=== PATIENT | female | born 1960 | race Caucasian/White ===

== ENCOUNTER 2016-12-13 12:23 | Emergency (ER) | payer BC ==
[2016-12-13 12:36] VITALS: BP 185/92
--- NOTE | 2016-12-13 13:14 | RAD ---
Shoulder x-rays Indication: Pain without injury. Technique: 3 views of the right shoulder Comparison: None Findings: No acute fracture or dislocation. Linear calcific density seen overlying the greater tuberosity. Mild acromioclavicular joint osteoarthritis. Glenohumeral joint within normal limits. Visualized right lung is clear. Impression: 1. Calcific density in the region of greater tuberosity may represent calcific tendinosis or tendon anchor if patient has history of rotator cuff repair. 2. Mild AC joint osteoarthritis. No acute fractures or dislocation.
--- NOTE | 2016-12-13 13:35 | PHYS DOC ---
Past History Past Medical History: A-Fib Past Surgical History: Appendectomy, Cholecystectomy, Other Adult General Chief Complaint Chief Complaint: SHOULDER INJURY HPI HPI 56-year-old female with a past medical history of chronic right shoulder pain which she has previously been told was associated with her rotator cuff, now presents to the emergency department complaining of the same pain which is generally been getting worse in her right shoulder when she uses it. Patient sometimes has no symptoms but with certain movements like reaching upwards to get something out of a cabinet she might have a sharp pain right in the shoulder area. She has not had any recent trauma and she's never had a surgery or procedure on that shoulder. She states is frustrated with the symptoms as they've been long-term at this point and sometimes quite uncomfortable. There is no swelling or bruising no deformity and she does have normal use and range of motion of the arm but sometimes with the aforementioned pains in the shoulder itself. Weakness or changes in sensation coordination or use Review of Systems Review of Systems Constitutional: Denies fever or chills [] Eyes: Denies change in visual acuity, redness, or eye pain [] HENT: Denies nasal congestion or sore throat [] Respiratory: Denies cough or shortness of breath [] Cardiovascular: No additional information not addressed in HPI [] GI: Denies abdominal pain, nausea, vomiting, bloody stools or diarrhea [] : Denies dysuria or hematuria [] Musculoskeletal: Denies back pain or joint pain [] Integument: Denies rash or skin lesions [] Neurologic: Denies headache, focal weakness or sensory changes [] Endocrine: Denies polyuria or polydipsia [] Allergies Allergies Allergies Coded Allergies Type Severity Reaction Last Updated Verified No Known Drug Allergies 12/13/16 No Physical Exam Physical Exam Well-appearing 56-year-old female no acute distress perfectly groomed mild soft tissue tenderness in the proximal biceps tendon distribution as well as the lateral humeral head distribution. No skin changes swelling or bony tenderness. No deformity. Normal range of motion of the arm and shoulder without difficulty NVI distal Constitutional: Well developed, well nourished, no acute distress, non-toxic appearance. [] HENT: Normocephalic, atraumatic, bilateral external ears normal, oropharynx moist, no oral exudates, nose normal. [] Eyes: PERRLA, EOMI, conjunctiva normal, no discharge. [] Neck: Normal range of motion, no tenderness, supple, no stridor. [] Cardiovascular:Heart rate regular rhythm, no murmur [] Lungs & Thorax: Bilateral breath sounds clear to auscultation [] Abdomen: Bowel sounds normal, soft, no tenderness, no masses, no pulsatile masses. [] Skin: Warm, dry, no erythema, no rash. [] Back: No tenderness, no CVA tenderness. [] Extremities: No tenderness, no cyanosis, no clubbing, ROM intact, no edema. [] Neurologic: Alert and oriented X 3, normal motor function, normal sensory function, no focal deficits noted. [] Psychologic: Affect normal, judgement normal, mood normal. [] Current Patient Data Vital Signs Vital Signs Date Time Temp Pulse Resp B/P (MAP) Pulse Ox O2 Delivery O2 Flow Rate FiO2 12/13/16 12:36 98.0 93 16 97 Room Air EKG EKG [] Radiology/Procedures Radiology/Procedures [] Course & Med Decision Making Course & Med Decision Making Pertinent Labs and Imaging studies reviewed. (See chart for details) Signs and symptoms consistent with tendinitis in the shoulder. X-ray with radiographic evidence of calcific tendinitis on the lateral aspect. Patient aware to use a sling as needed for symptomatic relief however to remove it frequently for full range of motion of the shoulder so as not to lose mobility. She can take NSAID such as ibuprofen apply ice if needed when the pain gets more sore towards the end of the day, and follow-up with her doctor for reevaluation and referral to orthopedics as needed. [] Dragon Disclaimer Dragon Disclaimer This chart was dictated in whole or in part using Voice Recognition software in a busy, high-work load, and often noisy Emergency Department environment. It may contain unintended and wholly unrecognized errors or omissions. Departure Departure: Impression: Primary Impression: Calcific tendinitis of right shoulder Additional Impression: Shoulder pain Disposition: 01 HOME, SELF-CARE Condition: STABLE Referrals: AAV DUEÑAS (PCP) Patient Instructions: Biceps Tendon Tendinitis (Proximal) and Tenosynovitis with Re[facility] Additional Instructions: It appears that you have calcific tendinitis of your right shoulder as well as biceps tendinitis. Calcific tendinitis is when a tendon becomes chronically inflamed and as a result the soft tissues become calcified or hardened with calcium. This can be set up for chronic pain because the tendon no longer has the typical flexibility and resilience that it normally would so it can create discomfort for the patient with certain ranges of motion of the involved joint. This is the case with your right shoulder. U also have tenderness of your proximal biceps tendon which would indicate biceps tendinitis. All of these are inflammatory processes and would benefit from taking anti-inflammatory medication such as ibuprofen 800 mg every 6 hours. He finally her shoulders especially sore at any time he can also take Tylenol as well as use an ice pack on it. Follow-up with your doctor for referral to orthopedics to discuss your results possible treatment protocols and long-term prognosis. Return immediately for new severe worsening symptoms Problem Qualifiers ZENA SALVADOR MD Dec 13, 2016 13:35
== END 2016-12-13 13:39 | disposition home or self-care (01) ==
LOC: ER 12:23
DX: M75.31 Calcific tendinitis of right shoulder (principal); G89.29 Other chronic pain; I48.91 Unspecified atrial fibrillation
CPT/HCPCS: 73030; 99284

== ENCOUNTER 2017-01-01 12:43 | Emergency (ER) | payer BC ==
[~2017-01-01] VITALS: Ht 154.9 cm; Wt 99.8 kg
[2017-01-01 12:51] VITALS: BP 167/85
[2017-01-01] MEDS ORDERED: ACETAMINOPHEN 500 MG TABLET PO ONE (13:45)
[2017-01-01] MEDS ORDERED: ONDANSETRON ODT 4 MG TAB.RAPDIS PO ONE (13:45)
[2017-01-01 13:50] LABS: INFLUENZA A PATIENT NEGATIVE (NEGATIVE); INFLUENZA B PATIENT NEGATIVE (NEGATIVE)
[2017-01-01] MEDS ORDERED: ONDA4TAB10 SL (14:11)
--- NOTE | 2017-01-01 14:11 | PHYS DOC ---
Past History Past Medical History: A-Fib, Constipation Past Surgical History: Other Alcohol Use: None Drug Use: None Adult General Chief Complaint Chief Complaint: NAUSEA/VOMITING/DIARRHEA HPI HPI Patient is a 56 year old F who presents with fever and nausea. She denies vomiting and diarrhea. She states that she has had generalized body aches and chills. She has mild neck pain but does not feel that she has reduced range of motion with respect to her neck. She has been able to hold down fluids and does not describe belly pain. She has had normal bowel movements and urination is normal as well. Review of Systems Review of Systems Constitutional: Negative except history of present illness Eyes: Denies change in visual acuity, redness, or eye pain [] HENT: Denies nasal congestion or sore throat [] Respiratory: Denies cough or shortness of breath [] Cardiovascular: No additional information not addressed in HPI [] GI: Denies abdominal pain, vomiting, bloody stools or diarrhea [] : Denies dysuria or hematuria [] Musculoskeletal: Denies back pain or joint pain [] Integument: Denies rash or skin lesions [] Neurologic: Denies headache, focal weakness or sensory changes [] Endocrine: Denies polyuria or polydipsia [] Family History Family History Uncontributory Current Medications Current Medications Current Medications Medications (Trade) Dose Ordered Sig/[facility] Start Time Stop Time Status Last Admin Dose Admin Acetaminophen (Tylenol) 1,000 mg 1X ONCE 01/01/17 13:45 01/01/17 13:46 DC 01/01/17 13:35 1,000 MG Ondansetron HCl (Zofran Odt) 4 mg 1X ONCE 01/01/17 13:45 01/01/17 13:46 DC 01/01/17 13:37 4 MG Allergies Allergies Allergies Coded Allergies Type Severity Reaction Last Updated Verified No Known Drug Allergies 12/13/16 No Physical Exam Physical Exam Constitutional: Well developed, well nourished, no acute distress, non-toxic appearance. [] HENT: Normocephalic, atraumatic, bilateral external ears normal, oropharynx moist, no oral exudates, nose normal. [] Eyes: PERRLA, EOMI, conjunctiva normal, no discharge. [] Neck: Normal range of motion, no tenderness, supple, no stridor. [] Cardiovascular:Heart rate regular rhythm, no murmur [] Lungs & Thorax: Bilateral breath sounds clear to auscultation [] Abdomen: Bowel sounds normal, soft, no tenderness, no masses, no pulsatile masses. [] Skin: Warm, dry, no erythema, no rash. [] Back: No tenderness, no CVA tenderness. [] Extremities: No tenderness, no cyanosis, no clubbing, ROM intact, no edema. [] Neurologic: Alert and oriented X 3, normal motor function, normal sensory function, no focal deficits noted. [] Psychologic: Affect normal, judgement normal, mood normal. [] Current Patient Data Vital Signs Vital Signs Date Time Temp Pulse Resp B/P (MAP) Pulse Ox O2 Delivery O2 Flow Rate FiO2 01/01/17 12:51 100.2 105 16 95 Room Air Lab Results Laboratory Tests Test 01/01/17 13:05 Influenza Type A (Rapid) Negative (NEGATIVE) Influenza Type B (Rapid) Negative (NEGATIVE) EKG EKG [] Radiology/Procedures Radiology/Procedures [] Course & Med Decision Making Course & Med Decision Making Pertinent Labs and Imaging studies reviewed. (See chart for details) Further labs and imaging were declined this time. He was strongly advised to return to the ER if she develops new or worsening symptoms for further evaluation Dragon Disclaimer Dragon Disclaimer This chart was dictated in whole or in part using Voice Recognition software in a busy, high-work load, and often noisy Emergency Department environment. It may contain unintended and wholly unrecognized errors or omissions. Departure Departure: Impression: Primary Impression: Viral gastritis Disposition: 01 HOME, SELF-CARE Condition: STABLE Referrals: PCP,NO (PCP) Patient Instructions: Viral Gastroenteritis Additional Instructions: Guillermina was seen in the emergency room for nausea with fevers/sweats/chills. No emergency medical condition was found on history or physical exam. She did have a negative influenza screen. Her symptoms are most consistent with a viral gastroenteritis. She was given a prescription for nausea medication and advised continue drinking plenty of fluids. She is advised to return to the emergency room if she develops new or worsening symptoms. She is also advised follow-up with her primary care doctor in the next 1-2 weeks for further management. Scripts Ondansetron (ZOFRAN ODT) 4 Mg Tab.rapdis 15 TAB SL Q8HRS, #15 TAB Prov: EAGLE WHITT MD 01/01/17 EAGLE WHITT MD Jan 01, 2017 14:11
== END 2017-01-01 14:15 | disposition home or self-care (01) ==
LOC: ER 12:43
DX: A08.4 Viral intestinal infection, unspecified (principal); I48.91 Unspecified atrial fibrillation
CPT/HCPCS: 87804; 99284; Q0162

== ENCOUNTER → 2017-02-26 | Outpatient (CLI) | payer OTHER ==
[~2017-02-26] MED LIST: IOHEXOL 300 MG/ML 75 ML VIAL. IV ONE; ONDA4TAB10 SL
[2017-02-26 13:00] LABS: BASO # 0.1 x10^3/uL (0.0-0.2); BASO % 1 % (0-3); EOS # 0.1 x10^3/uL (0.0-0.7); EOS % 2 % (0-3); HEMATOCRIT 41.7 % (36.0-47.0); HEMOGLOBIN 14.6 g/dL (12.0-15.5); LYMPH # 2.8 x10^3/uL (1.0-4.8); LYMPH % 32 % (24-48); MEAN CORPUSCULAR HEMOGLOBIN 30 pg (25-35); MEAN CORPUSCULAR HGB CONC 35 g/dL (31-37); MEAN CORPUSCULAR VOLUME 85 fL (79-100); MONO # 0.5 x10^3/uL (0.0-1.1); MONO % 6 % (0-9); NEUT # 5.1 x10^3uL (1.8-7.7); NEUT % 60 % (31-73); PLATELET COUNT 242 x10^3/uL (140-400); RED BLOOD COUNT 4.92 x10^6/uL (3.50-5.40); RED CELL DISTRIBUTION WIDTH 13.5 % (11.5-14.5); WHITE BLOOD COUNT 8.6 x10^3/uL (4.0-11.0)
[2017-02-26 13:05] LABS: ALBUMIN 3.6 g/dL (3.4-5.0); CALCIUM 9.5 mg/dL (8.5-10.1); CREATININE 1.1 mg/dL (0.6-1.0); GFR 50.8; MAGNESIUM 1.9 mg/dL (1.8-2.4); POTASSIUM 4.5 mmol/L (3.5-5.1); TOTAL BILIRUBIN 0.3 mg/dL (0.2-1.0); TOTAL PROTEIN 7.2 g/dL (6.4-8.2)
[2017-02-26 13:16] LABS: BILIRUBIN,URINE NEG (NEG); CLARITY,URINE CLOUDY; COLOR,URINE YELLOW; GLUCOSE,URINE >=1000 mg/dL (NEG); UROBILINOGEN,URINE 0.2 mg/dL (0.2 mg/dL)
[2017-02-26 13:17] LABS: BACTERIA,URINE MOD /HPF (0-FEW); NITRITE,URINE POS (NEG); SQUAMOUS EPITHELIAL CELL,UR MOD /LPF; WBC,URINE 20-40 /HPF (0-4)
--- NOTE | 2017-02-26 15:02 | RAD ---
EXAM: CT abdomen/pelvis with contrast. HISTORY: Abdominal pain, fever, vomiting and diarrhea. TECHNIQUE: Computed tomography of the abdomen and pelvis was performed after the intravenous administration of 60 mL Omnipaque 300. COMPARISON: None. FINDINGS: Lung windows through the visualized portions of the bases reveal mild atelectasis. There are atherosclerotic calcifications of the coronary arteries. Bone windows reveal no suspicious lesions. The gallbladder is surgically absent. A few pancreatic parenchymal calcifications suggest chronic pancreatitis. There is no clear ductal dilatation or focal lesion. Cortical scars are noted along the right kidney. The left is unremarkable. The liver, spleen and adrenal glands are unremarkable. There are no pathologically enlarged lymph nodes. The appendix is surgically absent. Small umbilical and bilateral umbilical hernias contain only fat. Sigmoid diverticulosis is mild. There are changes of pelvic floor relaxation. There is no obstruction. IMPRESSION: 1. Few pancreatic parenchymal calcifications. Correlate for chronic pancreatitis. No other cause for acute pain is identified. 2. Small focal and bilateral inguinal hernias containing only fat. 3. Pelvic floor relaxation. *One or more of the following individualized dose reduction techniques were utilized for this examination: 1. Automated exposure control. 2. Adjustment of the mA and/or kV according to patient size. 3. Use of iterative reconstruction technique.
== END | disposition home or self-care (01) ==
LOC: LAB 12:12
PROVIDERS: ATTEND Family Medicine
DX: K40.20 Bilateral inguinal hernia, without obstruction or gangrene, not specified as recurrent (principal); K57.30 Diverticulosis of large intestine without perforation or abscess without bleeding; I25.10 Atherosclerotic heart disease of native coronary artery without angina pectoris; J98.11 Atelectasis; K86.89 Other specified diseases of pancreas; N28.89 Other specified disorders of kidney and ureter; Z90.49 Acquired absence of other specified parts of digestive tract; Z90.89 Acquired absence of other organs
CPT/HCPCS: 36415; 74177; 80053; 81001; 83735; 84443; 85025; 87086; Q9967

== ENCOUNTER → 2017-04-09 | Outpatient (CLI) | payer OTHER ==
[~2017-04-09] MED LIST changes: -IOHEXOL 300 MG/ML 75 ML VIAL. IV ONE
--- NOTE | 2017-04-09 12:19 | RAD ---
Gastric imaging study 04/09/2017 Indication: Vomiting, diarrhea, nausea Comparison study: None Discussion: Imaging over the abdomen was performed for one hour following the oral administration of 2.1 mCi of technetium 99m labeled sulfur colloid solid meal. Cine images demonstrate some emptying of the stomach into the small bowel. No overt reflux is identified. Gastric emptying half time is estimated at 216 minutes (normal is 30 to 90 minutes). Impression: Delayed gastric emptying
== END | disposition home or self-care (01) ==
LOC: NM 07:17
PROVIDERS: ATTEND Family Medicine
DX: K30 Functional dyspepsia (principal); E11.40 Type 2 diabetes mellitus with diabetic neuropathy, unspecified; Z90.49 Acquired absence of other specified parts of digestive tract
CPT/HCPCS: 78264; A9541

== ENCOUNTER 2017-08-15 22:58 | Emergency (ER) | payer OTHER ==
[~2017-08-15] VITALS: Ht 170.2 cm; Wt 95.3 kg
[2017-08-15] MEDS ORDERED: HYDROmorphone PF 1 MG/ML DISP.SYRIN IV PRN (23:30)
[2017-08-15] MEDS ORDERED: IV NORMAL SALINE 1,000ML 1,000 ML IV ONE (23:45)
[2017-08-15] MEDS ORDERED: ONDANSETRON PF 4 MG/2 ML VIAL. IV ONE (23:45)
[2017-08-16 00:19] LABS: BASO % 1 % (0-3); EOS # 0.2 x10^3/uL (0.0-0.7); EOS % 2 % (0-3); HEMATOCRIT 44.3 % (36.0-47.0); HEMOGLOBIN 15.3 g/dL (12.0-15.5); LYMPH # 2.6 x10^3/uL (1.0-4.8); LYMPH % 29 % (24-48); MEAN CORPUSCULAR HEMOGLOBIN 30 pg (25-35); MEAN CORPUSCULAR HGB CONC 35 g/dL (31-37); MEAN CORPUSCULAR VOLUME 85 fL (79-100); MONO # 0.5 x10^3/uL (0.0-1.1); MONO % 6 % (0-9); NEUT # 5.6 x10^3uL (1.8-7.7); NEUT % 63 % (31-73); PLATELET COUNT 246 x10^3/uL (140-400); RED BLOOD COUNT 5.18 x10^6/uL (3.50-5.40); RED CELL DISTRIBUTION WIDTH 13.7 % (11.5-14.5)
[2017-08-16 00:32] LABS: ALBUMIN 3.7 g/dL (3.4-5.0); CALCIUM 9.5 mg/dL (8.5-10.1); CREATININE 1.1 mg/dL (0.6-1.0); TOTAL PROTEIN 7.1 g/dL (6.4-8.2)
[2017-08-16 00:33] LABS: DIRECT BILIRUBIN 0.1 mg/dL (0.0-0.2); GFR 50.8; POTASSIUM 4.2 mmol/L (3.5-5.1); TOTAL BILIRUBIN 0.3 mg/dL (0.2-1.0)
--- NOTE | 2017-08-16 00:38 | PHYS DOC ---
Past History Past Medical History: A-Fib, CAD, Diabetes, Heart Disease, Hypertension, Hypothyroid, Pancreatitis Past Surgical History: Appendectomy, Cholecystectomy, Other Alcohol Use: None Drug Use: None Adult General Chief Complaint Chief Complaint: abdominal pain HPI HPI 57-year-old female with a history of atrial fibrillation diabetes and pancreatitis presenting to the emergency department today with right and left lower quadrant abdominal pain/suprapubic abdominal pain that is a sharp shooting pain is moderate to severe nonradiating. No specific timing present. She has a history of an appendectomy and cholecystectomy. It is associated with nonbilious nonbloody vomiting. Review of systems is negative for chest pain shortness of breath fevers or chills. All other review of systems is negative unless otherwise noted in history of present illness. ED course: 57-year-old female presenting with suprapubic/right and left lower quadrant abdominal pain. On arrival the patient is afebrile with mild high blood pressure. Pulse within normal limits. Saturating well on room air. On examination she is well-appearing. Abdomen is soft and nontender palpation without rebound tenderness or guarding. Nondistended. The remainder the exam is unremarkable. IV established. Nausea and pain medications ordered. Blood work shows normal CBC. Chemistry panel shows elevated BUN and mild hyperglycemia. Lactic acid within normal limits. Urinalysis shows glucosuria and a small amount of blood in the urine. CT angiogram of the abdomen pelvis shows decreased density in the left common iliac and femoral veins. Clinically, the patient has no unilateral leg swelling hemoptysis or leg pain. No clinical signs of DVT. We will allow the patient to follow up with their primary care physician to monitor for this. On reexamination the patient is feeling better. We will discharge her home. The patient has been examined and was not found to have an emergency medical condition. The patient was then discharged home in stable condition to follow up with their primary care physician over the next 2- 3 days. They were to return if their symptoms worsened or if they were concerned for any reason. [id number] discharge instructions and return precautions were given. Patient's questions were answered to their satisfaction. Patient is comfortable with plan. Review of Systems Review of Systems SEE ABOVE. Current Medications Current Medications Current Medications Medications (Trade) Dose Ordered Sig/[facility] Start Time Stop Time Status Last Admin Dose Admin Hydromorphone HCl (Dilaudid) 0.5 mg PRN Q30MIN PRN 08/15/17 23:30 Ondansetron HCl (Zofran) 4 mg 1X ONCE 08/15/17 23:45 08/15/17 23:46 DC Sodium Chloride 1,000 ml @ 1,000 mls/hr 1X ONCE 08/15/17 23:45 08/16/17 00:44 Allergies Allergies Allergies Coded Allergies Type Severity Reaction Last Updated Verified No Known Drug Allergies 12/13/16 No Physical Exam Physical Exam SEE ABOVE Constitutional: Well developed, well nourished, no acute distress, non-toxic appearance. [] HENT: Normocephalic, atraumatic, bilateral external ears normal, oropharynx moist, no oral exudates, nose normal. [] Eyes: PERRLA, EOMI, conjunctiva normal, no discharge. [] Neck: Normal range of motion, no tenderness, supple, no stridor. [] Cardiovascular:Heart rate regular rhythm, no murmur [] Lungs & Thorax: Bilateral breath sounds clear to auscultation [] Abdomen: Bowel sounds normal, soft, no tenderness, no masses, no pulsatile masses. [] Skin: Warm, dry, no erythema, no rash. [] Back: No tenderness, no CVA tenderness. [] Extremities: No tenderness, no cyanosis, no clubbing, ROM intact, no edema. [] Neurologic: Alert and oriented X 3, normal motor function, normal sensory function, no focal deficits noted. [] Psychologic: Affect normal, judgement normal, mood normal. [] Current Patient Data Vital Signs Vital Signs Date Time Temp Pulse Resp B/P (MAP) Pulse Ox O2 Delivery O2 Flow Rate FiO2 08/15/17 23:11 98.2 88 20 96 Room Air Lab Results Laboratory Tests Test 08/15/17 23:55 White Blood Count 9.0 x10^3/uL (4.0-11.0) Red Blood Count 5.18 x10^6/uL (3.50-5.40) Hemoglobin 15.3 g/dL (12.0-15.5) Hematocrit 44.3 % (36.0-47.0) Mean Corpuscular Volume 85 fL (79-100) Mean Corpuscular Hemoglobin 30 pg (25-35) Mean Corpuscular Hemoglobin Concent 35 g/dL (31-37) Red Cell Distribution Width 13.7 % (11.5-14.5) Platelet Count 246 x10^3/uL (140-400) Neutrophils (%) (Auto) 63 % (31-73) Lymphocytes (%) (Auto) 29 % (24-48) Monocytes (%) (Auto) 6 % (0-9) Eosinophils (%) (Auto) 2 % (0-3) Basophils (%) (Auto) 1 % (0-3) Neutrophils # (Auto) 5.6 x10^3uL (1.8-7.7) Lymphocytes # (Auto) 2.6 x10^3/uL (1.0-4.8) Monocytes # (Auto) 0.5 x10^3/uL (0.0-1.1) Eosinophils # (Auto) 0.2 x10^3/uL (0.0-0.7) Basophils # (Auto) 0.0 x10^3/uL (0.0-0.2) EKG EKG [] Radiology/Procedures Radiology/Procedures [] Course & Med Decision Making Course & Med Decision Making Pertinent Labs and Imaging studies reviewed. (See chart for details) [] Dragon Disclaimer Dragon Disclaimer This electronic medical record was generated, in whole or in part, using a voice recognition dictation system. Departure Departure: Impression: Primary Impression: Abdominal pain Disposition: 01 HOME, SELF-CARE Condition: STABLE Referrals: LELO DE JESUS MD (PCP) Patient Instructions: Abdominal Pain Additional Instructions: Thank you for allowing us to participate in your care today. Followup with your primary care physician in 3 days if your symptoms do not improve. Call your Primary Doctor tomorrow and inform them of your visit today. If you do not have a primary care provider you can ask for a list of our primary care providers. Return to the emergency department you have any new or concerning findings. This should be evaluated by the primary care physician and any necessary consulting services for continued management within a few days after discharge. Return to emergency room if you have any new or concerning symptoms including but not limited to fever, chills, nausea, vomiting, intractable pain, any new rashes, chest pain, shortness of air, uncontrolled bleeding, difficulty breathing, and/or vision loss. If at any time, you are having difficulty getting into your primary care doctor or a specialist, return to the emergency department. KORINA GRANT MD Aug 16, 2017 00:38
[2017-08-16] MEDS ORDERED: CONTRAST GIVEN MC PRN (01:15)
[2017-08-16] MEDS ORDERED: IOHEXOL 300 MG/ML 75 ML VIAL. IV ONE (01:30)
[2017-08-16] MEDS ORDERED: HYDROmorphone PF 2 MG/ML VIAL ONE (01:35)
[2017-08-16 01:56] LABS: BACTERIA,URINE 0 /HPF (0-FEW); BILIRUBIN,URINE NEG (NEG); CLARITY,URINE HAZY; COLOR,URINE STRAW; GLUCOSE,URINE >=1000 mg/dL (NEG); NITRITE,URINE NEG (NEG); SQUAMOUS EPITHELIAL CELL,UR OCC /LPF; UROBILINOGEN,URINE 0.2 mg/dL (0.2 mg/dL); WBC,URINE OCC /HPF (0-4)
[2017-08-16 01:57] LABS: YEAST,URINE PRESENT /HPF
--- NOTE | 2017-08-16 03:03 | RAD ---
CT angiogram abdomen and pelvis with contrast: Reason for examination: Abdominal pain with atrial fibrillation and cardiac history. History of appendectomy and cholecystectomy. Comparison is made to previous study dated 02/26/2017. Helical images were obtained through the abdomen and pelvis with intravenous administration of 75 cc Omnipaque 300 using angiographic protocol. 3-D MIPS reconstruction was performed in sagittal and coronal planes. Exposure: One or more of the following individualized dose reduction techniques were utilized for this examination: 1. Automated exposure control 2. Adjustment of the mA and/or kV according to patient size 3. Use of iterative reconstruction technique. The lung bases are clear. The heart size is normal with no pericardial effusion seen. There appears to be some fatty infiltration in the liver without a focal hepatic lesion. No abnormality seen at the spleen, pancreas or adrenal glands. The gallbladder surgically absent. The abdominal aorta show no evidence of aneurysm or dissection. No abnormality seen at the inferior vena cava. There continues to be decreased density in the left common femoral and iliac veins and thrombus cannot be excluded but this is unchanged. Recommend clinical correlation. The appendix is surgically absent. The intestinal tract shows no abnormally dilated loops of bowel or bowel obstruction. There are diverticula in the sigmoid colon but there is no evidence of diverticulitis. The kidney shows no renal masses, hydronephrosis, renal calculi or evidence of obstructive uropathy. A few calcifications consistent with phleboliths are seen in the pelvis. No abnormality seen at the bladder or uterus. No adnexal masses or free fluid is seen. IMPRESSION: Fatty liver. Decreased density within the left common iliac and common femoral veins. This could be due to flow phenomenon as a similar appearance was seen previously but venous thrombus cannot be excluded. Diverticuli in the sigmoid colon without evidence of diverticulitis. No other acute abnormality seen in the abdomen or pelvis. Electronically signed by: Gail Sweeney MD (08/16/2017 3:00 AM) [facility]
[2017-08-16 03:30] VITALS: BP 147/78
== END 2017-08-16 03:58 | disposition home or self-care (01) ==
LOC: ER 22:58
DX: R10.31 Right lower quadrant pain (principal); R10.32 Left lower quadrant pain; R11.0 Nausea; R31.9 Hematuria, unspecified; I48.91 Unspecified atrial fibrillation; E11.65 Type 2 diabetes mellitus with hyperglycemia; I25.10 Atherosclerotic heart disease of native coronary artery without angina pectoris; I11.9 Hypertensive heart disease without heart failure; E03.9 Hypothyroidism, unspecified; Z90.49 Acquired absence of other specified parts of digestive tract
CPT/HCPCS: 36415; 74174; 80048; 80076; 81001; 83605; 83690; 84484; 85025; 96361; 96374; 96375; 99285; J1170; J2405; Q9967; J7030

== ENCOUNTER → 2018-06-28 | Outpatient (CLI) | payer BC, OTHER ==
--- NOTE | 2018-06-28 13:07 | RAD ---
DATE: 06/28/2018 EXAM: MAMMO AMARJIT MARCO ANTONIO MURO HISTORY: Breast pain COMPARISON: None available This study was interpreted with the benefit of Computerized Aided Detection (CAD). Breast Density: FATTY The breast parenchyma is primarily fatty replaced. Breast parenchyma level density A. FINDINGS: The patient presents with a complaint of right breast pain and no palpable abnormality. 2-D and 3-D tomosynthesis imaging was performed in CC and MLO projections. There is an electronic device compatible with an implanted tugboat captain projected over the medial aspect of the left breast. Several tiny smooth nodular opacities are present in both breasts, best seen on the tomosynthesis images. Multiple smooth nodule such as this tend to be benign. No spiculated mass or architectural distortion is seen. There are only normal fatty type tissues evident in the right breast in the area of reported pain in the upper medial right breast. There are scattered benign type calcifications in both breasts. There is slight clustering of some of these microcalcifications in 2 locations in the left breast, although the findings are probably benign. IMPRESSION: Probably benign microcalcifications and small smooth bilateral breast nodules as described above. In the absence of prior mammograms to establish stability, mammographic surveillance consisting of bilateral mammography in 6 months and then at yearly intervals is suggested. BI-RADS CATEGORY: 3 PROBABLY BENIGN FINDING(S)-SHORT INTERVAL FOLLOW-UP SUGGESTED RECOMMENDED FOLLOW-UP: 6M 6 MONTH FOLLOW-UP PQRS compliance statement: Patient information was entered into a reminder system with a target due date for the next mammogram. Mammography is a sensitive method for finding small breast cancers, but it does not detect them all and is not a substitute for careful clinical examination. A negative mammogram does not negate a clinically suspicious finding and should not result in delay in biopsying a clinically suspicious abnormality. "Our facility is accredited by the [employer] Mammography Program."
== END | disposition home or self-care (01) ==
LOC: MAMMO 12:08
PROVIDERS: ATTEND Family Medicine
DX: N64.4 Mastodynia (principal)
CPT/HCPCS: 77066; G0279; 77062

== ENCOUNTER → 2018-12-25 | Outpatient (CLI) | payer BC ==
--- NOTE | 2018-12-25 13:53 | RAD ---
DATE: 12/25/2018 EXAM: MAMMO AMARJIT DIAG BILAT HISTORY: Probably benign microcalcifications in the bilateral breast masses COMPARISON: 06/28/2018 This study was interpreted with the benefit of Computerized Aided Detection (CAD). Breast Density: FATTY The breast parenchyma is primarily fatty replaced. Breast parenchyma level density A. FINDINGS: Bilateral 3-D tomosynthesis was performed in CC and MLO projections. 2-D CC and MLO views are provided. Right breast: There are no suspicious microcalcifications, masses or areas of architectural distortion. Left breast: There are no suspicious microcalcifications, masses or areas of architectural distortion. Stable benign-appearing microcalcifications. Bilateral mammograms compared to prior examinations and appears unchanged. IMPRESSION: 1. Negative right mammogram. 2. Benign calcifications in the left breast. BI-RADS CATEGORY: 2 BENIGN FINDING(S) RECOMMENDED FOLLOW-UP: 12M 12 MONTH FOLLOW-UP PQRS compliance statement: Patient information was entered into a reminder system with a target due date 12/26/2019 for the next mammogram. Mammography is a sensitive method for finding small breast cancers, but it does not detect them all and is not a substitute for careful clinical examination. A negative mammogram does not negate a clinically suspicious finding and should not result in delay in biopsying a clinically suspicious abnormality. "Our facility is accredited by the [employer] Mammography Program."
== END | disposition home or self-care (01) ==
LOC: MAMMO 12:16
PROVIDERS: ATTEND Family Medicine
DX: R92.1 Mammographic calcification found on diagnostic imaging of breast (principal)
CPT/HCPCS: 77066; G0279; 77062

== ENCOUNTER → 2019-04-04 | Outpatient (CLI) | payer BC ==
[~2019-04-04] MED LIST changes: +IOHEXOL 240 MG/ML 50ML VIAL. ONE; +IOHEXOL 240 MG/ML 50ML VIAL. PO ONE; +IOHEXOL 300 MG/ML 75 ML VIAL. IV ONE
--- NOTE | 2019-04-05 07:56 | RAD ---
CT abdomen pelvis with contrast. HISTORY: Right lower quadrant pain, R 10.31 CT scan of the abdomen and pelvis was done using oral and intravenous contrast, 16 mL Omnipaque 300 contrast was used for the study. Lung bases are clear. There is no effusion. There is degenerative disc disease at L5-S1 with mild bulging of the disc at L4-5. Liver is normal in appearance. The patient's had a cholecystectomy and appendectomy. Spleen and adrenal glands are normal. Pancreas is normal. There is scarring in the upper and lower right kidney. There is no renal mass or hydronephrosis or intrarenal calculus. There is no adenopathy. Bowel pattern is normal. Uterus and ovaries are normal. There is mild diverticulosis without diverticulitis. There is no bowel obstruction. IMPRESSION: 1. Scarring in the right kidney. 2. No bowel obstruction or acute finding in the abdomen 3. Uterus and ovaries are normal. 4. Previous appendectomy. Electronically signed by: Koko Islas MD (04/05/2019 7:53 AM) [facility]
== END | disposition home or self-care (01) ==
LOC: CT 09:35
PROVIDERS: ATTEND Family Medicine
DX: K57.90 Diverticulosis of intestine, part unspecified, without perforation or abscess without bleeding (principal); M51.37 Other intervertebral disc degeneration, lumbosacral region; Z90.49 Acquired absence of other specified parts of digestive tract
CPT/HCPCS: 74177; Q9966; Q9967

== ENCOUNTER → 2019-04-18 | Outpatient (CLI) | payer BC ==
[~2019-04-18] MED LIST changes: -IOHEXOL 240 MG/ML 50ML VIAL. ONE; -IOHEXOL 240 MG/ML 50ML VIAL. PO ONE; -IOHEXOL 300 MG/ML 75 ML VIAL. IV ONE
--- NOTE | 2019-04-18 13:55 | RAD ---
EXAM: Pelvic sonogram. HISTORY: Right lower quadrant pain. TECHNIQUE: Transabdominal and transvaginal sonographic imaging of the pelvis was performed. COMPARISON: CT dated 04/04/2019. FINDINGS: The uterus is normal in size. The endometrial stripe measures 5 mm thickness. The ovaries are obscured due to bowel loops. There is no pelvic free fluid. IMPRESSION: 1. Upper normal endometrial stripe thickness for the postmenopausal status of the patient. 2. Obscured ovaries due to bowel loops. Electronically signed by: Jeannette Cabral MD (04/18/2019 1:52 PM) [place] [id number]
== END | disposition home or self-care (01) ==
LOC: US 09:31
PROVIDERS: ATTEND Family Medicine
DX: R10.31 Right lower quadrant pain (principal); Z78.0 Asymptomatic menopausal state
CPT/HCPCS: 76830

== ENCOUNTER → 2019-05-30 | Outpatient (CLI) | payer BC ==
--- NOTE | 2019-05-30 14:48 | RAD ---
EXAM: Chest, 2 views. HISTORY: Wheezing. Cough. Fever. COMPARISON: None. FINDINGS: 2 views of the chest are obtained. There is diffuse central predominant interstitial infiltrate with suspected small left pleural effusion. There is a prominent cardiac silhouette. There is no pneumothorax. There is a cardiac event monitor overlying the left thorax. IMPRESSION: Diffuse central predominant interstitial infiltrate with suspected small left pleural effusion. Electronically signed by: Jeannette Cabral MD (05/30/2019 2:45 PM) [facility] [place]
== END | disposition home or self-care (01) ==
LOC: DXRAD 12:06
PROVIDERS: ATTEND Family Medicine
DX: R91.8 Other nonspecific abnormal finding of lung field (principal)
CPT/HCPCS: 71046

== ENCOUNTER → 2019-06-02 | Outpatient (CLI) | payer BC ==
--- NOTE | 2019-06-02 17:46 | RAD ---
CHEST PA LATERAL History: Cough Comparison: 05/30/2021 view chest x-ray exam. Findings: Frontal and lateral views of chest were obtained. There is a loop recorder device. The cardiomediastinal silhouette is normal. Pulmonary vasculature is mildly congested. Small pleural effusions are present. Minimal left basilar linear atelectasis is present. No pneumothorax. There is no acute bone abnormality. Upper abdominal surgical clips are present. IMPRESSION: Mild pulmonary vascular congestion and pleural effusions. Electronically signed by: Abraham Roberts MD (06/02/2019 5:43 PM) [id number]
== END | disposition home or self-care (01) ==
LOC: DXRAD 12:57
PROVIDERS: ATTEND Family Medicine
DX: I50.33 Acute on chronic diastolic (congestive) heart failure (principal); J90 Pleural effusion, not elsewhere classified; J98.11 Atelectasis
CPT/HCPCS: 71046

== ENCOUNTER → 2019-11-19 | Outpatient (CLI) | payer BC ==
--- NOTE | 2019-11-19 10:50 | RAD ---
PROCEDURE: ABDOMEN SUPINE UPRIGHT STUDY DATE: 11/19/2019 CLINICAL INDICATION / HISTORY: Reason: ABDOMEN PAIN AND CONSTIPATION / Spl. Instructions: / History: . TECHNIQUE: supine and upright films of the abdomen were obtained. COMPARISON: 06/02/2019 chest x-ray FINDINGS: Included lung bases show mild cardiomegaly and event monitor in the medial left breast. Previous opacities of the lung bases have since cleared. No free air is identified below the diaphragms. Supine and upper views of the abdomen reveal no dilated loops of bowel or air-fluid levels. Moderate stool in the visualized large bowel. No organomegaly is present. No destructive osseous lesions. IMPRESSION: No radiographic evidence for bowel obstruction. Findings compatible with constipation. Electronically signed by: Rnadall Patino MD (11/19/2019 10:47 AM) [id number]
== END ==
LOC: RAD 09:37
PROVIDERS: ATTEND Family Medicine
DX: R10.84 Generalized abdominal pain (principal); K59.00 Constipation, unspecified; I51.7 Cardiomegaly
CPT/HCPCS: 74019

== ENCOUNTER → 2019-12-09 | Outpatient (CLI) | payer BC ==
[~2019-12-09] MED LIST changes: +APIX5TAB3 PO; +ASPI81TA59 PO; +ATORVASTATIN CA80 MG PO; +CARV6.2541 PO; +FURO-69 PO; +INSU100I13 SQ; +LEVO88TA51 PO; +LIPA1CAP4 PO; +METO5TAB55 PO; +OMEP40CA45 PO; +RANO500T2 PO; +SOTA80TA48 PO; +TEMA30CA PO; +[UNRECOGNIZED DRUG - CODE] PO
== END | disposition home or self-care (01) ==
LOC: LAB 12:56
PROVIDERS: ATTEND Registered Nurse
DX: Z01.818 Encounter for other preprocedural examination (principal); Z11.59 Encounter for screening for other viral diseases; K21.9 Gastro-esophageal reflux disease without esophagitis; R13.10 Dysphagia, unspecified; Z86.010 Personal history of colon polyps
CPT/HCPCS: U0003-CS

== ENCOUNTER → 2019-12-12 | Day surgery (SDC) | payer BC ==
[~2019-12-12] MED LIST changes: +IPRATRPIUM/ALBUTEROL 0.5/2.5MG 3 ML NEBU. NEB PRN; +IV RINGERS SOLUTION,LACTATED 1,000 ML IV SCH; +KETAMINE HCL IN NACL, ISO-OSM 50 MG/5 ML SYRINGE IV ONE; +LIDOCAINE 2% PF 5 ML VIAL. ONE; +MIDAZOLAM HCL PF 2 MG/2 ML VIAL. IV ONE; +PROPOFOL 10,000 MCG/ML (20ML) VIAL IV ONE
[2019-12-12 12:50] VITALS: BP 181/80
== END | disposition home or self-care (01) ==
LOC: SURG 10:30
PROVIDERS: ATTEND Internal Medicine Gastroenterology
DX: R19.4 Change in bowel habit (principal); K22.2 Esophageal obstruction; K44.9 Diaphragmatic hernia without obstruction or gangrene; K31.89 Other diseases of stomach and duodenum; K29.70 Gastritis, unspecified, without bleeding; K21.0 Gastro-esophageal reflux disease with esophagitis; I25.10 Atherosclerotic heart disease of native coronary artery without angina pectoris; E11.9 Type 2 diabetes mellitus without complications; I48.91 Unspecified atrial fibrillation; I49.8 Other specified cardiac arrhythmias; K21.9 Gastro-esophageal reflux disease without esophagitis; E03.9 Hypothyroidism, unspecified; E78.00 Pure hypercholesterolemia, unspecified; I49.9 Cardiac arrhythmia, unspecified; I10 Essential (primary) hypertension; Z86.73 Personal history of transient ischemic attack (TIA), and cerebral infarction without residual deficits; Z86.010 Personal history of colon polyps; Z87.440 Personal history of urinary (tract) infections; Z79.82 Long term (current) use of aspirin; Z79.899 Other long term (current) drug therapy; Z98.890 Other specified postprocedural states; Z53.8 Procedure and treatment not carried out for other reasons
CPT/HCPCS: 43239; 43450; 45378; 82947; 88305; 88342; J2001; J2704; J7120; 94640

== ENCOUNTER → 2019-12-30 | Outpatient (CLI) | payer BC ==
[~2019-12-30] MED LIST changes: -IPRATRPIUM/ALBUTEROL 0.5/2.5MG 3 ML NEBU. NEB PRN; -IV RINGERS SOLUTION,LACTATED 1,000 ML IV SCH; -KETAMINE HCL IN NACL, ISO-OSM 50 MG/5 ML SYRINGE IV ONE; -LIDOCAINE 2% PF 5 ML VIAL. ONE; -MIDAZOLAM HCL PF 2 MG/2 ML VIAL. IV ONE; -PROPOFOL 10,000 MCG/ML (20ML) VIAL IV ONE
== END ==
LOC: LAB 13:07
PROVIDERS: ATTEND Registered Nurse
DX: Z01.812 Encounter for preprocedural laboratory examination (principal); Z20.828 Contact with and (suspected) exposure to other viral communicable diseases
CPT/HCPCS: U0003-CS

== ENCOUNTER → 2019-12-30 | Outpatient (CLI) | payer BC ==
--- NOTE | 2020-01-02 15:39 | RAD ---
DATE: 12/30/2019 10:15 AM EXAM: MAMMO AMARJIT SCREENING BILATERAL HISTORY: Screening COMPARISON: 12/25/2018 Bilateral CC and MLO views of the breasts were performed. Bilateral breast tomosynthesis was performed in CC and MLO projections. This study was interpreted with the benefit of Computerized Aided Detection (CAD). FINDINGS: Breast Density: FATTY The Breast Parenchyma is primarily fatty replaced. Breast parenchyma level density A. Event monitor/cardiac loop recorder in the medial left breast. No suspicious masses, microcalcifications or architectural distortion is present to suggest malignancy in either breast. The visualized axillae are unremarkable. IMPRESSION: No mammographic evidence of malignancy. BI-RADS CATEGORY: 1 NEGATIVE RECOMMENDED FOLLOW-UP: 12M 12 MONTH FOLLOW-UP Annual screening mammography is recommended, unless clinically indicated sooner based on symptoms or change in physical exam. PQRS compliance statement: Patient information was entered into a reminder system with a target due date for the next mammogram. Mammography is a sensitive method for finding small breast cancers, but it does not detect them all and is not a substitute for careful clinical examination. A negative mammogram does not negate a clinically suspicious finding and should not result in delay in biopsying a clinically suspicious abnormality. "Our facility is accredited by the [employer] Mammography Program."
== END | disposition home or self-care (01) ==
LOC: MAMMO 10:02
PROVIDERS: ATTEND Family Medicine
DX: Z12.31 Encounter for screening mammogram for malignant neoplasm of breast (principal)
CPT/HCPCS: 77063; 77067

== ENCOUNTER → 2020-01-02 | Day surgery (SDC) | payer BC ==
[~2020-01-02] MED LIST changes: +IPRATRPIUM/ALBUTEROL 0.5/2.5MG 3 ML NEBU. NEB PRN; +IV RINGERS SOLUTION,LACTATED 1,000 ML IV SCH; +LIDOCAINE 2% PF 5 ML VIAL. ONE; +MIDAZOLAM HCL PF 2 MG/2 ML VIAL. IV ONE; +PROPOFOL 10,000 MCG/ML (20ML) VIAL IV ONE
[2020-01-02 14:18] VITALS: BP 183/78
--- NOTE | 2020-01-06 16:07 | PATHOLOGY ---
[facility] Accession Number: [id number] . 01 Material submitted: . PART A: colon - TRANSVERSE DISTAL COLON POLYP PART B: colon - PROXIMAL TRANSVERSE COLON POLYP. Modifiers: proximal, transverse . 01 Clinical history: . EGD/COLON . 02 Diagnosis: A. Colon biopsy, distal transverse colon polyp: - Tubular adenoma. . B. Colon biopsy, proximal transverse colon polyp: - Tubular adenoma. . (JPM:pulmonology technician; 01/06/2020) MBR 01/06/2020 1208 Local . 02 Comment: There is no high-grade dysplasia or evidence of malignancy. (JPM:madalyn; 01/06/2020) . 02 Electronically signed: . Alexey Gallagher MD, Pathologist NPI- [id number] . 01 Gross description: . A. The specimen is received in formalin, labeled "Hawkins, Guillermina, transverse colon distal polyp" and consists of a fragment of pink-turner tissue measuring 0.6 x 0.3 cm which is entirely submitted in A1. . B. The specimen is received in formalin, labeled "Hawkins, Guillermina, proximal colon polyp transverse" and consists of a fragment of pink-turner tissue measuring 0.3 x 0.3 cm which is entirely submitted in B1. (SDY; 01/05/2020) SYU/SYU 01/06/2020 1205 Local . 02 Pathologist provided ICD-10: D12.3 . 02 CPT . 504676, 347775 Specimen Comment: A courtesy copy of this report has been sent to [phone] Specimen Comment: [id number] Specimen Comment: Report sent to DR DE JESUS / DR SEQUEIRA Performed at: [address] [place] [address] [address]vd [address], [place], [place] [id number] MD Vinay Blackburn MD Phone: [phone] Performed at: [address] [id number] MD Alexey Gallagher MD Phone: [phone]
== END | disposition home or self-care (01) ==
LOC: SURG 10:20
PROVIDERS: ATTEND Internal Medicine Gastroenterology
DX: Z12.11 Encounter for screening for malignant neoplasm of colon (principal); D12.3 Benign neoplasm of transverse colon; E11.9 Type 2 diabetes mellitus without complications; K21.9 Gastro-esophageal reflux disease without esophagitis; K92.2 Gastrointestinal hemorrhage, unspecified; Z98.890 Other specified postprocedural states; Z79.899 Other long term (current) drug therapy; Z86.010 Personal history of colon polyps; Z80.0 Family history of malignant neoplasm of digestive organs
CPT/HCPCS: 43450; 45380; J2001; J2704; J7120; 88305

== ENCOUNTER → 2020-02-11 | Outpatient (CLI) | payer BC ==
[2020-01-02 14:18] VITALS: BP 183/78
[~2020-02-11] MED LIST changes: -IPRATRPIUM/ALBUTEROL 0.5/2.5MG 3 ML NEBU. NEB PRN; -IV RINGERS SOLUTION,LACTATED 1,000 ML IV SCH; -LIDOCAINE 2% PF 5 ML VIAL. ONE; -MIDAZOLAM HCL PF 2 MG/2 ML VIAL. IV ONE; -PROPOFOL 10,000 MCG/ML (20ML) VIAL IV ONE
--- NOTE | 2020-02-12 16:37 | RAD ---
DATE: 02/11/2020 EXAM: Right breast ultrasound HISTORY: Right breast pain after mammogram 12/30/2019. Pain is at the nipple and radiates outward COMPARISON: Screening mammogram 12/30/2019 TECHNIQUE: Grayscale ultrasound imaging of the right breast in the area of pain. FINDINGS: There is normal fibroglandular tissue in the areas obtained. No hematoma or fluid collection. No cyst or mass identified. Normal lymph nodes in the right axilla. IMPRESSION: Normal right breast ultrasound. No evidence of malignancy or hematoma. BI-RADS CATEGORY: 1 NEGATIVE RECOMMENDED FOLLOW-UP: 12M 12 MONTH FOLLOW-UP
== END ==
LOC: US 11:15
PROVIDERS: ATTEND Family Medicine
DX: N64.4 Mastodynia (principal)
CPT/HCPCS: 76641

== ENCOUNTER → 2020-06-15 | Outpatient (CLI) | payer BC ==
[2020-01-02 14:18] VITALS: BP 183/78
--- NOTE | 2020-06-15 17:43 | RAD ---
EXAM: XR CHEST 2V INDICATION: Reason: CHRONIC DIASTOLIC HEART FAILURE / Spl. Instructions: / History: . TECHNIQUE: PA and lateral views COMPARISON: Chest x-ray of 06/02/2019 FINDINGS: The heart size is normal. The great vessels appear unremarkable. There is no hilar or mediastinal mass. The lungs are clear. Findings of pulmonary vascular congestion evident previously have resolved.. There is no pleural effusion or pneumothorax. There are no significant osseous abnormalities. Event monitor in the medial left breast is again evident. IMPRESSION: No active cardiopulmonary disease. Electronically signed by: Randall Patino MD (06/15/2020 5:41 PM) [id number]
== END ==
LOC: RAD 14:15
PROVIDERS: ATTEND Family Medicine
DX: I50.32 Chronic diastolic (congestive) heart failure (principal)
CPT/HCPCS: 71046

== ENCOUNTER → 2020-10-15 | Day surgery (SDC) | payer BC ==
[~2020-10-15] MED LIST changes: +INSU100C4 SQ; +INSU100V13 SQ; +IPRATRPIUM/ALBUTEROL 0.5/2.5MG 3 ML NEBU. NEB PRN; +IV RINGERS SOLUTION,LACTATED 1,000 ML IV SCH; +LIDOCAINE 2% PF 5 ML VIAL. ONE; +MIDAZOLAM HCL PF 2 MG/2 ML VIAL. IV ONE; +NITR6.5C14 PO; -OMEP40CA45 PO; +OMEP40CA7 PO; +PROPOFOL 10,000 MCG/ML (20ML) VIAL IV ONE; -[UNRECOGNIZED DRUG - CODE] PO
[2020-10-15 13:27] VITALS: BP 147/75
--- NOTE | 2020-10-19 18:11 | PATHOLOGY ---
[facility] Accession Number: [id number] . 01 Material submitted: . stomach - ANTRUM BIOPSY. Modifiers: ANTRUM . 01 Clinical history: . DYSPHAGIA EGD WITH BIOPSY AND DILATION . 02 Diagnosis: Gastric biopsies, antrum: - Chronic gastritis, mild. (JPM:johnny 10/19/2020) S 10/19/2020 1526 Local . 02 Comment: Sections of the gastric antral biopsy show congestion and mild chronic inflammation. A properly controlled immunoperoxidase stain for Helicobacter is negative for Helicobacter organisms. There is no evidence of malignancy. (JPM:johnny; 10/19/2020) . Special stain performed: Immunperoxidase stain for Helicobacter on A1 . 02 Electronically signed: . lAexey Gallagher MD, Pathologist NPI- [id number] . 01 Gross description: . Received in formalin labeled "Ross, Guillermina L, antrum bx" are 2 turner-brown soft tissue fragments measuring in aggregate 0.5 x 0.2 x 0.1 cm. The specimen is submitted entirely in A1. (TAHIR; 10/18/2020) TAHIR/ATHIR 10/18/20201940 Local . 02 Pathologist provided ICD-10: K29.50 . 02 CPT . 216825, [id number] Specimen Comment: A courtesy copy of this report has been sent to [phone] Specimen Comment: Report sent to / DR DE JESUS Performed at: 01 [facility] [address], [place] [id number] MD Oni Montez MD Phone: [phone] Performed at: 02 [facility] [address] [place], [place] [id number] MD Alexey Gallagher MD Phone: [phone]
== END | disposition home or self-care (01) ==
LOC: SURG 10:47
PROVIDERS: ATTEND Internal Medicine Gastroenterology
DX: R13.10 Dysphagia, unspecified (principal); K44.9 Diaphragmatic hernia without obstruction or gangrene; K29.50 Unspecified chronic gastritis without bleeding; K22.2 Esophageal obstruction; I13.0 Hypertensive heart and chronic kidney disease with heart failure and stage 1 through stage 4 chronic kidney disease, or unspecified chronic kidney disease; I50.32 Chronic diastolic (congestive) heart failure; N18.4 Chronic kidney disease, stage 4 (severe); E11.22 Type 2 diabetes mellitus with diabetic chronic kidney disease; K21.00 Gastro-esophageal reflux disease with esophagitis, without bleeding; I25.2 Old myocardial infarction; E11.65 Type 2 diabetes mellitus with hyperglycemia; E03.9 Hypothyroidism, unspecified; I25.10 Atherosclerotic heart disease of native coronary artery without angina pectoris; I48.91 Unspecified atrial fibrillation; Z79.899 Other long term (current) drug therapy; Z79.4 Long term (current) use of insulin; Z87.440 Personal history of urinary (tract) infections; Z86.010 Personal history of colon polyps; Z90.49 Acquired absence of other specified parts of digestive tract; Z90.89 Acquired absence of other organs; Z98.890 Other specified postprocedural states; Z86.73 Personal history of transient ischemic attack (TIA), and cerebral infarction without residual deficits
CPT/HCPCS: 43239; 43450; 88305; 88342; J2001; J2704

== ENCOUNTER → 2020-11-03 | Outpatient (CLI) | payer BC ==
[2020-10-15 13:27] VITALS: BP 147/75
[~2020-11-03] MED LIST changes: -IPRATRPIUM/ALBUTEROL 0.5/2.5MG 3 ML NEBU. NEB PRN; -IV RINGERS SOLUTION,LACTATED 1,000 ML IV SCH; -LIDOCAINE 2% PF 5 ML VIAL. ONE; -MIDAZOLAM HCL PF 2 MG/2 ML VIAL. IV ONE; -PROPOFOL 10,000 MCG/ML (20ML) VIAL IV ONE
[2020-11-03 14:32] LABS: BASO # 0.1 x10^3/uL (0.0-0.2); BASO % 1 % (0-3); EOS # 0.7 x10^3/uL (0.0-0.7); EOS % 8 % (0-3); HEMATOCRIT 27.8 % (36.0-47.0); LYMPH # 1.9 x10^3/uL (1.0-4.8); LYMPH % 21 % (24-48); MEAN CORPUSCULAR HEMOGLOBIN 29 pg (25-35); MEAN CORPUSCULAR HGB CONC 33 g/dL (31-37); MEAN CORPUSCULAR VOLUME 89 fL (79-100); MONO # 0.5 x10^3/uL (0.0-1.1); MONO % 6 % (0-9); NEUT # 5.9 x10^3uL (1.8-7.7); NEUT % 65 % (31-73); PLATELET COUNT 283 x10^3/uL (140-400); RED BLOOD COUNT 3.13 x10^6/uL (3.50-5.40); RED CELL DISTRIBUTION WIDTH 14.5 % (11.5-14.5); WHITE BLOOD COUNT 9.1 x10^3/uL (4.0-11.0)
--- NOTE | 2020-11-03 14:37 | RAD ---
EXAM: Chest, 2 views. HISTORY: Fever. COMPARISON: 06/15/2020 FINDINGS: 2 views of the chest are obtained. There is no infiltrate, pleural effusion or pneumothorax . There is a stable prominent cardiac silhouette and chronic appearing interstitial changes. IMPRESSION: No acute pulmonary finding. Electronically signed by: Jeannette Cabral MD (11/03/2020 2:34 PM) [id number]
== END ==
LOC: LAB 13:56
PROVIDERS: ATTEND Family Medicine
DX: R50.9 Fever, unspecified (principal)
CPT/HCPCS: 36415; 71046; 85025; 87040

== ENCOUNTER 2020-11-05 20:04 | Emergency (ER) | payer BC ==
[~2020-11-05] VITALS: Ht 170.2 cm; Wt 97.7 kg
--- NOTE | 2020-11-05 20:39 | PHYS DOC ---
Past History Past Medical History: A-Fib, CAD, Diabetes, Heart Disease, Hypertension, Hypothyroid, Pancreatitis Past Surgical History: Appendectomy, Cholecystectomy, Other Alcohol Use: None Drug Use: None Adult General HPI HPI Patient is a 60-year-old female with a past medical history significant for CAD, A. fib, on Eliquis, insulin-dependent diabetes and hypertension who presents to the emergency department with a chief complaint of a week of productive cough, runny nose, chills and body aches with a fever at home today of 100.4. States she was in the emergency department yesterday and had a work-up and sent home but no Covid swab. States she has talked to her primary care physician today and was directed to come back to the emergency department for a Covid swab. Denies any recent traumas, travel, chest pain, shortness of breath, abdominal pain, nausea, vomiting, diarrhea, dysuria, hematuria or blood in the stool. Denies any known ill contacts. Review of Systems Review of Systems Review of systems otherwise unremarkable except noted in HPI Allergies Allergies Allergies Coded Allergies Type Severity Reaction Last Updated Verified No Known Drug Allergies 10/12/20 No Physical Exam Physical Exam Constitutional: Well developed, well nourished, no acute distress, non-toxic appearance. [] HENT: Normocephalic, atraumatic, tympanic membranes normal,, oropharynx moist, no oral exudates, nose normal. [] Eyes: conjunctiva normal, no discharge. [] Neck: Normal range of motion, no tenderness, supple, no stridor, no lymphadenopathy. [] Cardiovascular:Heart rate regular rhythm, no murmur [] Lungs & Thorax: Bilateral breath sounds clear to auscultation [] Abdomen: soft, no tenderness, no masses, no pulsatile masses. [] Skin: Warm, dry, no erythema, no rash. [] Extremities: No tenderness, ROM intact, no edema. [] Neurologic: Alert and oriented X 3, no focal deficits noted. [] Psychologic: Affect normal, judgement normal, mood normal. [] EKG EKG [] Radiology/Procedures Radiology/Procedures [] Heart Score C/O Chest Pain: No Risk Factors: Risk Factors: DM, Current or recent (<one month) smoker, HTN, HLP, family history of CAD, obesity. Risk Scores: Risk Factors: DM, Current or recent (<one month) smoker, HTN, HLP, family history of CAD, obesity. Course & Med Decision Making Course & Med Decision Making Patient is a 60-year-old female who presents with Covid/flu/cold symptoms for a week who was directed by her primary care to come in for a Covid swab Vital signs notable for hypertension. Physical exam noted above. Patient placed on the monitor with IV access established. Denied need for pain or nausea medicine at this time. EKG noted above with no STEMI. Troponin not concerning. Urinalysis not suggestive of UTI. Laboratory analysis notable for KAT which appears new from previous measurements. Repeat blood pressure measurements still greater than 180. Discussed all findings with patient and recommended admission for hypertensive emergency with endorgan damage apparently at the site of the kidney. Given patient hydralazine. Discussed patient with Dr. Gama, who accepted to [facility] for continued evaluation and treatment, but [facility] did not have a bed so was transferred to [place]. Dragon Disclaimer Dragon Disclaimer This electronic medical record was generated, in whole or in part, using a voice recognition dictation system. Departure Departure: Impression: Primary Impression: Hypertensive emergency Additional Impression: KAT (acute kidney injury) Disposition: ADMITTED INPATIENT Admitting Physician: Melida Gama Condition: STABLE Referrals: LELO DE JESUS MD (PCP) Problem Qualifiers ILIA MOTA MD Nov 05, 2020 20:39
[2020-11-05 21:04] LABS: BASO # 0.1 x10^3/uL (0.0-0.2); BASO % 1 % (0-3); EOS # 0.8 x10^3/uL (0.0-0.7); EOS % 7 % (0-3); HEMATOCRIT 27.5 % (36.0-47.0); HEMOGLOBIN 8.9 g/dL (12.0-15.5); LYMPH # 2.1 x10^3/uL (1.0-4.8); LYMPH % 19 % (24-48); MEAN CORPUSCULAR HEMOGLOBIN 29 pg (25-35); MEAN CORPUSCULAR HGB CONC 32 g/dL (31-37); MEAN CORPUSCULAR VOLUME 88 fL (79-100); MONO # 0.7 x10^3/uL (0.0-1.1); MONO % 7 % (0-9); NEUT # 7.4 x10^3uL (1.8-7.7); NEUT % 67 % (31-73); PLATELET COUNT 301 x10^3/uL (140-400); RED BLOOD COUNT 3.12 x10^6/uL (3.50-5.40); RED CELL DISTRIBUTION WIDTH 14.8 % (11.5-14.5)
--- NOTE | 2020-11-05 21:05 | EKG ---
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
[2020-11-05 21:08] LABS: CALCIUM 8.4 mg/dL (8.5-10.1); GFR 15.8; POTASSIUM 5.1 mmol/L (3.5-5.1)
[2020-11-05] MEDS ORDERED: ACETAMINOPHEN 500 MG TABLET PO ONE (22:00)
[2020-11-05 22:24] LABS: BILIRUBIN,URINE NEG (NEG); CLARITY,URINE CLEAR; COLOR,URINE YELLOW; GLUCOSE,URINE 250 mg/dL (NEG)
[2020-11-05 22:25] LABS: BACTERIA,URINE 0 /HPF (0-FEW); NITRITE,URINE NEG (NEG); SQUAMOUS EPITHELIAL CELL,UR OCC /LPF; UROBILINOGEN,URINE 0.2 mg/dL (0.2 mg/dL)
[2020-11-05] MEDS ORDERED: hydrALAZINE 20 MG/ML VIAL. IV ONE (23:00)
[2020-11-06 01:20] VITALS: BP 151/64
[2020-11-06] MEDS ORDERED: hydrALAZINE 20 MG/ML VIAL. IV PRN (03:00)
== END 2020-11-06 01:51 | disposition short-term general hospital (02) ==
LOC: ER 20:04
DX: N17.9 Acute kidney failure, unspecified (principal); I16.1 Hypertensive emergency; I48.91 Unspecified atrial fibrillation; I25.10 Atherosclerotic heart disease of native coronary artery without angina pectoris; I11.9 Hypertensive heart disease without heart failure; E03.9 Hypothyroidism, unspecified; E11.9 Type 2 diabetes mellitus without complications; Z20.822 Contact with and (suspected) exposure to COVID-19; Z79.01 Long term (current) use of anticoagulants
CPT/HCPCS: 36415; 80048; 81001; 84484; 85025; 93005; 96374; 99285; C9803; J0360; U0003

== ENCOUNTER → 2020-11-22 | Outpatient (CLI) | payer MEDICARE ==
[2020-11-06 01:20] VITALS: BP 151/64
--- NOTE | 2020-11-22 10:25 | RAD ---
EXAM: Renal sonogram. HISTORY: Renal insufficiency. TECHNIQUE: Sonographic imaging the kidneys and bladder was performed. COMPARISON: None. FINDINGS: The kidneys are normal in size. No solid or cystic renal lesion is seen. There is no hydron ephrosis. The bladder is unremarkable. IMPRESSION: Sonographically unremarkable kidneys. Electronically signed by: Jeannette Cabral MD (11/22/2020 10:22 AM) [id number]
== END ==
LOC: US 09:30
DX: I12.9 Hypertensive chronic kidney disease with stage 1 through stage 4 chronic kidney disease, or unspecified chronic kidney disease (principal); N18.4 Chronic kidney disease, stage 4 (severe); E11.22 Type 2 diabetes mellitus with diabetic chronic kidney disease; E87.5 Hyperkalemia; E87.70 Fluid overload, unspecified
CPT/HCPCS: 76770